=== PATIENT | female | born 1990 | race Caucasian/White ===

== ENCOUNTER 2020-06-27 14:04 | Outpatient (CLI) | payer OTHER, SELFPAY ==
--- NOTE | 2020-06-27 | ECG_ITS ---
Measurements Intervals [place] Rate: 60 P: 9 TX: 149 QRS: 83 QRSD: 91 T: 52 QT: 460 QTc: 460 Interpretive Statements SINUS RHYTHM NORMAL ECG Electronically Signed On 06-27-2020 14:51:10 CDT by Xavi Andrews D.O.
--- NOTE | ~2020-06-27 | XR_ITS ---
EXAMINATION: XR chest 2V DATE: 06/27/2020 15:01 INDICATION: Shortness of breath. TECHNIQUE: Frontal and lateral views of the chest were obtained on 3 radiographs. COMPARISON: Chest single view 03/02/2019 FINDINGS: The chest demonstrates clear lungs without pneumonia, pleural effusion, or pneumothorax. Th e heart size is normal. IMPRESSION: 1. No acute cardiopulmonary disease. Reviewed, dictated and finalized at location A.
[2020-06-27 14:39] LABS: Hematocrit 40.4 % (37.0-47.0); Hemoglobin 13.9 g/dL (12.0-15.0); Mean Corpuscular HGB Conc 34.4 g/dl (32-36); Mean Corpuscular Hemoglobin 30.9 pg (26-34); Mean Corpuscular Volume 89.8 fl (80-100); Mean Platelet Volume 9.7 fl (7.4-10.4); Platelet Count Result 216 k/mm3 (150-375); White Blood Count 6.6 K/mm3 (4.5-10.0)
[2020-06-27 14:51] LABS: Anion Gap 8 mmol/L (8-16); Blood Urea Nitrogen 16 mg/dL (7-17); Calcium 9.4 mg/dL (8.4-10.2); Carbon Dioxide 25 mmol/L (22-30); Chloride 104 mmol/L (98-107); Estimated Glomerular Filt Rate > 60; Glucose 91 mg/dL (65-105); Potassium 4.1 mmol/L (3.4-5.0); Sodium 137 mmol/L (137-145)
== END 2020-06-27 14:05 | disposition home or self-care (01) ==
PROVIDERS: PCP Nurse Practitioner Family; Visit Provider Nurse Practitioner Family
DX: R00.2 Palpitations (principal); R06.02 Shortness of breath
CPT/HCPCS: 36415; 71046; 80048; 84443; 85027; 93005

== ENCOUNTER 2022-04-20 18:04 | Inpatient (IN) | payer OTHER, SELFPAY ==
[2022-04-20] VITALS (7 sets, daily range): BP systolic 107–121; BP diastolic 64–73; PULSE 63–72; TEMP 36.6–36.8; BMI 26.4
--- NOTE | 2022-04-20 18:04 | LDADM ---
This patient, Shaun Wellington, was admitted to Labor/Delivery/Recovery 109 on 04/20/22 at 18:04. Plans for labor, pain management and were discussed with patient. Patient/family oriented to hospital policies and general routines including ID bracelet, bed and alarms, visiting hours, pain management, procedures, bathroom and other care routines, personal items, smoking policy, room service/diet and guest tray routines, infant security routines, and visiting hours. Patient/Family are encouraged to report perceived risks to care and to ask questions if they do not understand what they are told or what they should do. See OBIX for further documentation.
--- OUTSIDE RECORDS SUMMARY | 2022-04-20 18:09 | XMS_ITS | Encounter Summary ---
:1990 Author Care Team Providers Name Role Phone Cecy Cavanaugh NICCI Primary Care Provider [phone] Reason for Visit None recorded. Assessment and Plan 1. COVID-19 ? US, obstetric, follow-up Discussion Note: None recorded.Patient educational handouts: No information available. Plan of Care Reminders Provider Appointments Ob Routine 04/25/2022 1:45PM Sada mendoza CNM ? Ob Routine 04/30/2022 4:30PM Sada mendoza CNM Lab None recorded. ? ? Referral None recorded. ? ? Procedures None recorded. ? ? Surgeries None recorded. ? ? Imaging US, Obstetric, Follow-up 03/11/2022 Jhon nelson Medications Name Start Date ? ? ondansetron HCl 4 mg tablet ? Take 2 tablets twice a day by oral route. ? Medications Administered None recorded. Vitals None recorded. Results Lab Results None recorded. Allergies Code Code System Name Reaction Severity Onset NKDA ? ? ? Problems Name Status Onset Date Source ? Active 10/23/2021 ? Procedures Date Name Performed by ? 12/25/2015 Extraction of [place] Tooth Information n ot available 03/11/2022 US, Obstetric, Follow-up [place] [address] [place] [address] (Work [address]) Vaccine List Vaccine Type Tdap 03/14/2022 Social History Tobacco Smoking Status Never Smoker
--- OUTSIDE RECORDS SUMMARY | 2022-04-20 18:09 | XMS_ITS | Encounter Summary ---
:1990 Author Care Team Providers Name Role Phone Cecy Cavanaugh NICCI Primary Care Provider [phone] Reason for Visit None recorded. Assessment and [...] recorded. ? ? Imaging US, Obstetric, Follow-up 04/09/2022 Jhon nelson Medications Name Start Date ? [...] Name Performed by ? 12/25/2015 Extraction of [place] Tooth Information n ot available 03/11/2022 US, Obstetric, Follow-up [place] [address] [place] [address] (Work Place) 04/09/2022 US, Obstetric, Follow-up [place] [address] [place] [address]
--- OUTSIDE RECORDS SUMMARY | 2022-04-20 18:09 | XMS_ITS | Encounter Summary ---
:1990 Author Care Team Providers Name Role Phone Cecy Monetnoy GRAJEDA Primary Care Provider [phone] Reason for Visit None recorded. Assessment and Plan 1. Routine care Discussion Note: None recorded.Patient educational handouts: No information available. Plan of Care Reminders Provider Appointments Ob Routine 04/25/2022 1:45PM Sada mendoza CNM ? Ob Routine 04/30/2022 4:30PM Sada mendoza CNM Lab None recorded. ? ? Referral None recorded. ? ? Procedures None recorded. ? ? Surgeries None recorded. ? ? Imaging None recorded. ? ? Medications Name Start Date ? ? ondansetron HCl 4 mg tablet ? Take 2 tablets twice a day by oral route. ? Medications Administered None recorded. Vitals Height Weight BMI Blood Pressure 5 ft 7 in 167 lbs 26.2 kg/m2 127/82 mm[Hg] Results Lab Results None recorded. Allergies Code Code System Name Reaction Severity Onset NKDA ? ? ? Problems Name Status Onset Date Source ? Active 10/23/2021 ? Procedures Date Name Performed by ? 12/25/2015 Extraction of [place] Tooth Information n ot available 03/11/2022 US, Obstetric, Follow-up [place] [address] [place] [address] (Work [address]) Vaccine List Vaccine Type Tdap 03/14/2022 Social H
--- OUTSIDE RECORDS SUMMARY | 2022-04-20 18:09 | XMS_ITS ---
:1990 Author Care Team Providers Name Role Phone BELLA DUNHAM NICCI Primary Care Provider [phone] Allergies Code Code System Name Reaction Severity Status Onset NKDA ? Medications Name Status Start Date Stop Date ? ? azithromycin 250 mg tablet Completed ? 04/09 TAKE 2 TABLETS BY MOUTH TODAY, THEN TAKE 1 TABLET DAILY FOR 4 D AYS fluconazole 150 mg tablet Completed ? 2020 TAKE 1 TABLET BY MOUTH metronidazole 500 mg tablet Completed ? 10/2020 TAKE 1 TABLET BY MOUTH EVERY 12 HOURS nitrofurantoin monohydrate/macrocrystals 100 mg capsule Unknown ? Not available TAKE 1 CAPSULE BY MOUTH EVERY 12 HOURS ondansetron HCl 4 mg tablet Active ? Not available Active ? Not available Problems Name Status Onset Date Source ? Active 10/23/2021 ? Procedures Date Name Performed by ? 12/25/2015 Extraction of [place] Tooth Information n ot available 10/23/2021 US, Obstetric, Nuchal Translucency Maryneelima nelson [address] [place] [address] (Work [address]) 12/11/2021 US, Obstetric, 2Nd or 3Rd Trimester [place] [address] [place] [address] (Work [address]) 12/11/2021 US, Obstetric, Transvaginal [place] [address] [place] [address] (Work [address])
--- OUTSIDE RECORDS SUMMARY | 2022-04-20 18:09 | XMS_ITS | Encounter Summary ---
:1990 Author Care Team Providers Name Role Phone Cecy Monetmaralscotty NICCI Primary Care Provider [phone] Reason for Visit OB visit Assessment and Plan 1. Routine care Discussion [...] BMI Blood Pressure 5 ft 7 in 168 lbs 26.3 kg/m2 114/77 mm[Hg] Results Lab Results None recorded. Allergies Code Code System Name Reaction Severity Onset NKDA ? ? ? Problems Name Status Onset Date Source ? Active 10/23/2021 ? Procedures Date Name Performed by ? 12/25/2015 Extraction of [place] Tooth Information n ot available 04/09/2022 US, Obstetric, Follow-up [place] [address] [place] [address] (Work [address]) Vaccine List Vaccine Type Tdap 03/14/2022 Social History
--- OUTSIDE RECORDS SUMMARY | 2022-04-20 18:10 | XMS_ITS | Encounter Summary ---
:1990 Author Care Team Providers Name Role Phone Cecy Riverascotty VIDEO MANAGER Primary Care Provider [phone] Reason for Visit OB visit OB [id number] EDC 04/30/2022 LMP 08/25/2021 Assessment and Plan 1. Routine care Discussion [...] BMI Blood Pressure 5 ft 7 in 163 lbs 25.5 kg/m2 118/73 mm[Hg] Results Lab Results None recorded. Allergies Code Code System Name Reaction Severity Onset NKDA ? ? ? Problems Name Status Onset Date Source ? Active 10/23/2021 ? Procedures Date Name Performed by ? 12/25/2015 Extraction of [place] Tooth Information n ot available Vaccine List Vaccine Type Tdap 03/14/2022 Social History Tobacco Smoking Status Never Smoker What is the highest grade or level of school you have comple janae or [id number] the highest degree you have received?
--- OUTSIDE RECORDS SUMMARY | 2022-04-20 18:10 | XMS_ITS | Encounter Summary ---
:1990 Author Care Team Providers Name Role Phone Cecy Cavanaugh NICCI Primary Care Provider [phone] Reason for Visit None recorded. Assessment and [...] recorded. ? ? Imaging US, Obstetric, Follow-up 02/03/2022 Jhon nelson Medications Name Start Date ? [...] Name Performed by ? 12/25/2015 Extraction of [place] Tooth Information n ot available 01/06/2022 US, Obstetric, Follow-up [place] [address] [place] [address] (Work [address]) 02/03/2022 US, Obstetric, Follow-up [place] [address] [place] [address]
--- OUTSIDE RECORDS SUMMARY | 2022-04-20 18:10 | XMS_ITS | Encounter Summary ---
:1990 Author Care Team Providers Name Role Phone Cecy Cavanaugh OIL DISPATCHER Primary Care Provider [phone] Reason for Visit OB visit ob [id number] 04/30/2022 lmp 08/25/2021 Assessment and Plan 1. Routine care [...] BMI Blood Pressure 5 ft 7 in 160 lbs 25.1 kg/m2 113/60 mm[Hg] Results Lab Results None recorded. Allergies Code Code System Name Reaction Severity Onset NKDA ? ? ? Problems Name Status Onset Date Source ? Active 10/23/2021 ? Procedures Date Name Performed by ? 12/25/2015 Extraction of [place] Tooth Information n ot available 02/03/2022 US, Obstetric, Follow-up [place] [address] [place] [address] (Work [address]) Vaccine List Vaccine Type Tdap
--- OUTSIDE RECORDS SUMMARY | 2022-04-20 18:10 | XMS_ITS | Encounter Summary ---
:1990 Author Care Team Providers Name Role Phone Cecy Cavanaugh NICCI Primary Care Provider [phone] Reason for Visit OB visit Assessment and Plan Assessment Note Patient is ___weeks . Discussed plan. 1. Routine care Discussion Note: None recorded.Patient [...] BMI Blood Pressure 5 ft 7 in 157 lbs 24.6 kg/m2 116/71 mm[Hg] Results Lab Results None recorded. Allergies Code Code System Name Reaction Severity Onset NKDA ? ? ? Problems Name Status Onset Date Source ? Active 10/23/2021 ? Procedures Date Name Performed by ? 12/25/2015 Extraction of [place] Tooth Information n ot available 01/06/2022 US, Obstetric, Follow-up [place] [address] [place] [address] (Work [address]) 02/03/2022 US, Obste
[2022-04-20 19:29] LABS: Basophils Percent Auto 0.1 % (0.2-1.2); Eosinophils Percent Auto 0.2 % (0-4.4); Hematocrit 32.1 % (37.0-47.0); Hemoglobin 10.7 g/dL (12.0-15.0); Immature Granulocyte Absolute 0.06 K/mm3 (0.00-0.031); Immature Granulocyte Percent A 0.4 % (0-0.5); Lymphocytes Absolute Auto 2.23 K/mm3 (0.9-3.2); Lymphocytes Percent Auto 16.6 % (18.3-44.2); Mean Corpuscular HGB Conc 33.3 g/dl (32-36); Mean Corpuscular Hemoglobin 30.1 pg (26-34); Mean Corpuscular Volume 90.4 fl (80-100); Mean Platelet Volume 9.8 fl (7.4-10.4); Monocytes Absolute Auto 0.9 K/mm3 (0.1-0.6); Monocytes Percent Auto 6.9 % (2.6-8.5); Neutrophils Absolute Auto 10.2 K/mm3 (1.3-6.7); Neutrophils Percent Auto 75.8 % (45.5-73.1); Platelet Count Result 232 k/mm3 (150-375); Red Blood Count 3.55 M/mm3 (4.2-5.4); White Blood Count 13.4 K/mm3 (4.5-10.0)
--- NOTE | 2022-04-20 19:42 | WPDANESEPP ---
Anes - Eval Pre Procedure Procedure: labor epidural Date/Time: 04/20/22 19:42 Pre Op Diagnosis: Leaking Patient Data Age: 31 Gender: F Height: 1.7 m Weight: 76.5 kg Last Vital Signs Pulse 72 04/20/22 19:19 BP 121/73 04/20/22 19:19 O2 Del Method Room Air 04/20/22 19:19 Allergies Allergy/AdvReac Type Severity Reaction Status Date / Time No Known Allergies Allergy Verified 04/02/22 15:51 Home Medications Medication Instructions Recorded Confirmed Type aspirin 81 mg tablet 81 mg PO DAILY 04/02/22 04/20/22 History famotidine 20 mg tablet (Pepcid) 20 mg PO DAILY 04/02/22 04/20/22 History ferrous sulfate 325 mg (65 mg 45 mg PO DAILY 04/02/22 04/20/22 History iron) tablet (Iron (ferrous sulfate)) prenat.vits,mary,yye-owav-stbib 1 tablet PO DAILY 04/02/22 04/20/22 History Laboratory Tests 04/20/22 04/20/22 19:02 19:02 WBC 13.4 K/mm3 H K/mm3 (4.5-10.0) RBC 3.55 M/mm3 L M/mm3 (4.2-5.4) Hgb 10.7 g/dL L D g/dL (12.0-15.0) Hct 32.1 % L % (37.0-47.0) MCV 90.4 fl fl (80-100) MCH 30.1 pg pg (26-34) MCHC 33.3 g/dl g/dl (32-36) RDW 13.0 % % (11.5-14.5) Plt Count 232 k/mm3 k/mm3 (150-375) MPV 9.8 fl fl (7.4-10.4) Immature Gran % (Auto) 0.4 % % (0-0.5) Neut % (Auto) 75.8 % H % (45.5-73.1) Lymph % (Auto) 16.6 % L % (18.3-44.2) [place] % (Auto) 6.9 % % (2.6-8.5) Eos % (Auto) 0.2 % % (0-4.4) Baso % (Auto) 0.1 % L % (0.2-1.2) Lymph # (Auto) 2.23 K/mm3 K/mm3 (0.9-3.2) [place] # (Auto) 0.9 K/mm3 H K/mm3 (0.1-0.6) Eos # (Auto) 0.0 K/mm3 K/mm3 (0-0.3) Baso # (Auto) 0.0 K/mm3 K/mm3 (0.0-0.1) Abs Immat Gran (auto) 0.06 K/mm3 H K/mm3 (0.00-0.031) Absolute Neuts (auto) 10.2 K/mm3 H K/mm3 (1.3-6.7) Absolute Nucleated RBC 0.0 K/mm3 K/mm3 (0.0-0.012) Nucleated RBC % 0.0 % % (0.0-0.2) RPR Pending Patient hx anesthesia problems: none Family hx anesthesia problems: none Results Review: All pre-operative results and documents have been reviewed as part of the pre-operative evaluation. [facility] Past Medical History Medical History (Updated 04/20/22 @ 19:45 by Zoraida Burnham CRNA) Anemia Depression Hx of migraines Scoliosis Family History Family History Grandparent Cervical cancer Sibling Mitral valve prolapse Mother Mitral valve prolapse Social History Social History Smoking status: Never smoker Alcohol intake: current Substance use: never Substance use type: does not use Gender identity (if verbalized by the patient): Female Spiritual care concerns: No Exam Day of Procedure 04/20/22 19:42 Patient weight: overweight Heart: regular rate and rhythm Lungs: normal air movement Airway: Mallampati scale class II Neurological: alert and oriented
[2022-04-20] MEDS: OXYTOCIN 30 UNITS/NS 500 ML 30 UNITS/500 ML BAG IV CONT (23:08)
[2022-04-20] MEDS: LACTATED RINGERS 1,000 ML 125 ML IV CONT (23:09)
[2022-04-21] VITALS (60 sets, daily range): BP systolic 84–136; BP diastolic 42–83; PULSE 57–99; RESP 16; TEMP 36.2–36.8; O2SAT 97–100
[2022-04-21] MEDS: ONDANSETRON INJ 4 MG/2 ML VIAL IV PUSH (01:46)
[2022-04-21] MEDS: FAMOTIDINE 20 MG/2 ML VIAL IV PUSH (02:08)
[2022-04-21] MEDS: LACTATED RINGERS 1,000 ML 125 ML IV CONT ×2 (02:14→02:51)
[2022-04-21] MEDS: fentaNYL CITRATE INJ (*CRX) 100 MCG/2 ML VIAL IV PUSH (02:21)
--- NOTE | 2022-04-21 05:27 | WPDOBADMIT ---
Obstetrics - Admit Note Admission Note: Pt admitted with contractions and SROM. record reviewed. No pertinent additions to the history and/or any subsequent changes in the physical findings that are not consistent with the expected course of the were found. Additions to the history and/or subsequent changes in the physical findings follow. None.
--- NOTE | 2022-04-21 05:28 | P.PCNOB_ITS ---
OB - Delivery Note Procedure Procedure: Delivery monitor: External FHT and External Uterine Route of delivery: Specimen: No Quantitative Blood Loss (ml): 69 Anesthesia type: Epidural [place] Baby Date of : 04/21/22 Time of : 05:06 Weeks of gestation at delivery: 38 gender: Male Weight (pounds): 6 Weight (ounces): 1 presentation: vertex position: Right Occiput Anterior Placenta delivery description: Spontaneous Cord Vessel Description: 3 Vessels score one minute: 9 score ten minutes: 9
[2022-04-21] MEDS: LORATADINE 10 MG TABLET PO (05:45)
[2022-04-21] MEDS: OXYTOCIN 30 UNITS/NS 500 ML 30 UNITS/500 ML BAG 125 UNITS IV CONT (05:45)
[2022-04-21] MEDS: WITCH HAZEL 40 PADS 1 PAD TOPICAL (07:25)
[2022-04-21] MEDS: BENZOCAINE 20% AER SPR (*SP) 56 GM CAN 1 SPRAY TOPICAL (07:25)
--- NOTE | 2022-04-21 07:57 | PC.NURSE ---
Patient transferred to post room #291 via wheelchair. Support person present. Oriented to unit, room, information board, rooming in, admission packet and security measures. Patient verbalizes understanding.
[2022-04-21] MEDS: IBUPROFEN 600 MG TABLET PO ×2 (09:41→18:01)
[2022-04-21] MEDS: DOCUSATE SODIUM 100 MG CAPSULE PO (09:41)
[2022-04-21] MEDS: MULTIVIT/MIN/PREN/FOL AC/IRON TABLET 1 TAB PO (09:41)
[2022-04-21] MEDS: LANOLIN (LANSINOH) 7.5 GM CREAM 1 APPLIC TOPICAL (09:42)
--- NOTE | 2022-04-21 13:10 | PC.NURSE ---
[id number] Re-introductions were made due to familiarity, then consulted with patient to assess needs related to . Mother led the conversation with her experience feeding her so far and has laying on her lap. Mother works well with her with encouragement. Encouraged understanding of the benefits of skin to skin (unwrapping and placing vertically on her chest), responsive feeding and how to watch for early feeding signs, frequency of feeding on demand about every 8-12 times in 24 hours (every 2-3 hours), milk production, duration of feeding, signs of adequate intake/output and how to record on the feeding sheet. Reviewed positioning and ear, shoulder, hip alignment, supporting the breast, asymmetrical latch (off-center), and leading with the chin with a big open side gape. Infant attempted to latch to the right breast in cross cradle position with no latch. has early feeding cues when vertically between breast but mainly sleeps when lowered to the breast to feed. Nipple care reviewed with optimal latch and good positioning. Mother hand expressed 1 ml of colostrum and it was syringe fed to infant at 1245. Infant placed back skin to skin after a few more attempts without latching. Reviewed good handwashing when or touching the breast/nipples to prevent infection. Resources used to facilitate learning were used with the visual handout/ tool/mom and baby guide. Mother voiced understanding of responsive feedings, stimulating with skin to skin, hand expressed colostrum, touch, talking to infant to encourage if it has been 2 -3 hours since the start of the last , to call if does not latch or there is discomfort with . Mother is going to eat lunch and RN will check back at 1400. Reported to the primary RN.
--- NOTE | 2022-04-21 14:11 | PC.NURSE ---
1403 - Mother is eating and voiced understanding to call later when infant is skin to skin rooting to breastfeed.
--- NOTE | 2022-04-21 15:26 | PC.NURSE ---
[id number] Mother verbalizes she is able to independently latch with appropriate positioning/alignment but infant breastfed for 5 min, then went to sleep. She denies any nipple discomfort and is responsively . Infant is currently meeting outcomes for weight, output, jaundice and feeding frequencies of 8-12 times in 24 hours. Stimulated infant with position change, demonstrated feeding cues, then optimally assisted and mother with an optimal latch to the left breast using football positioning. Mother acknowledged seeing and hearing swallowing with s suck/swallow ratio of 1:1. Mother is encouraged to call for assistance if her doesn?t latch or there is discomfort with latching. Mother voiced understanding of information shared and mom and baby guide reviewed for additional resource information . Reported to the primary RN.
[2022-04-21 16:29] LABS: Rapid Plasma Reagin Non-Reactive (NonReactive)
[2022-04-21] MEDS: ACETAMINOPHEN 325 MG TABLET 650 MG PO (20:44)
[2022-04-22 01:20] VITALS: BP 111/62; PULSE 62; RESP 16; TEMP 36.7; O2SAT 99
[2022-04-22] MEDS: IBUPROFEN 600 MG TABLET PO ×2 (01:24→09:06)
[2022-04-22 05:25] VITALS: BP 114/72; PULSE 60; RESP 16; TEMP 36.6; O2SAT 98
[2022-04-22 05:35] LABS: Hematocrit 30.1 % (37.0-47.0)
--- NOTE | 2022-04-22 07:03 | P.PNOB_ITS ---
OB - PN: Subj Subjective Date/time seen: 04/22/22 07:03 Patient comments: no complaints and pain well controlled baby status: doing well and nursing well [place] feeding status: exclusively breast feeding OB - PN: Obj Data Labs CBC & Chem 7: 04/22/22 05:29 Labs: Laboratory Results - last 24 hr 04/20/22 04/22/22 19:02 05:29 Hgb 10.0 L Hct 30.1 L RPR Non-reactive OB - PN A/P Plan day: 1 Plan: routine care and discharge home Time Spent With Patient Time: Total time spent is greater than 50% in coordination of care (as documented) at patient's floor/unit and/or counseling patient: Time with patient: less than 15 minutes Exam Narrative: NAD abdomen soft, nontender, fundus firm below the umbilicus Extremities nontender, 1+ edema
[2022-04-22] MEDS: MULTIVIT/MIN/PREN/FOL AC/IRON TABLET 1 TAB PO (07:06)
[2022-04-22] MEDS: ACETAMINOPHEN 325 MG TABLET 650 MG PO (07:06)
[2022-04-22] MEDS: DOCUSATE SODIUM 100 MG CAPSULE PO (07:06)
--- NOTE | 2022-04-22 07:06 | PM.OBDSVD ---
DS: Admitting Diagnosis Discharge Date 04/22/22 Admitting Diagnosis term IUP, SROM DS: Discharge Diagnosis Discharge Diagnosis (1) , delivered: Code(s): O80 - Encounter for full-term uncomplicated delivery Status: Acute OB - DS: Summary Hospital Course Hospital Course: Che was admitted for SROM at term and had an uncomplicated vaginal delivery and course. She was DCed home on PPD 1 in stable condition. OB Procedures : Ultrasound OB Procedures Intrapartum: Spontaneous Vag Delivery OB Procedures: : None Peripartum Data Delivery Method: Natural Vaginal complications: none Status at Discharge Functional status at discharge: independent ambulation Time Spent with Patient Time attestation: Total time spent providing and/or coordinating discharge services: Exam Narrative: NAD abdomen soft, appropriately tender Ext non tender, 1+ edema DS: Data Data Completed and Pending Labs on day of discharge: Labs from last 24 hours 04/22/22 04/20/22 05:29 19:02 Hgb 10.0 L Hct 30.1 L RPR Non-reactive Discharge Plan Discharge Attending physician on discharge: Shauna Reddy Discharging Clinician: Shauna Reddy Anticipated Discharge Date/Time: 04/22/22 07:04 Patient Disposition: Home, Self-Care Activity: pelvic rest Diet: regular Patient Instructions: Antibiotic Form Stand Alone Forms: General Discharge Information Follow-up/Referrals: Liza Mckeon MD [Physician] - 4 Weeks Discharge Medications: Continued famotidine [Pepcid] 20 mg Tablet 20 mg PO DAILY ferrous sulfate [Iron (ferrous sulfate)] 325 mg (65 mg iron) Tablet 45 mg PO DAILY #2 Tablet 1 tablet PO DAILY Discontinued Low-Dose Aspirin 81 mg Tablet 81 mg PO DAILY Date of admission: 04/20/22 18:04 Primary Care Provider: Cecy Cavanaugh Admitting Provider: Liza Mckeon Attending physician on admission: Liza Mckeon Condition: Stable
--- NOTE | 2022-04-22 07:42 | PC.NURSE ---
Patient to view the discharge video Mother & Baby Care, The First Two Weeks online. Patient was given the opportunity and encouraged to ask questions. Patient verbalized understanding of information shared and has been given the mother/baby guide for home reference.
[2022-04-22 08:05] VITALS: BP 112/68; PULSE 66; RESP 18; TEMP 37.2; O2SAT 95
--- NOTE | 2022-04-22 11:25 | PC.NURSE ---
[id number] Mother led the conversation with her experience and plan to feed her so far and her ability to independently latch optimally without discomfort. Mother is feeding appropriately for growth of and understands stimulating infant to eat if needed. has had appropriate feedings in the last 24 hours meets the outcomes for weight, output and jaundice at this time. Mother states she is confident to continue effectively her at home or when to call for assistance and denies any additional assistance or education at this time. Reinforced understanding of milk production, transition of milk, signs of adequate intake, prevention/relief of engorgement, responsive after visualizing feeding cues, the different methods of stimulating to breastfeed 2-3 hours after the start of the last feeding, community resources, medication information reviewed per [employer] and when to call a provider using the resource of the mom and baby guide/[facility] website. Mother voiced understanding of the education shared. Reported to the primary RN.
[2022-04-23 09:50] VITALS: BP 114/58; PULSE 63; RESP 20; TEMP 36.6; O2SAT 99
== END 2022-04-22 10:16 | disposition home or self-care (01) | DRG 807 ==
LOC: ANHLDR 18:28 → ANHOB2 04-22 07:06 → ANHLDR 04-23 09:30
PROVIDERS: Advanced Practice Midwife; Admitting Provider Obstetrics & Gynecology; PCP Nurse Practitioner Family; Visit Provider Obstetrics & Gynecology
DX: O69.89X0 Labor and delivery complicated by other cord complications, not applicable or unspecified (principal); Z37.0 Single live birth; O76 Abnormality in fetal heart rate and rhythm complicating labor and delivery; Z3A.38 38 weeks gestation of pregnancy
CPT/HCPCS: 36415; 85014; 85018; 85025; 86592; 86850; 86900; 86901; A9270; J2405; J2590; J2795; J3010; J7120

== ENCOUNTER → 2023-01-29 10:44 | Outpatient (CLI) | payer OTHER, SELFPAY ==
--- NOTE | ~2023-01-29 | MMUS_ITS ---
EXAMINATION: US breast RT complete, MM diagnostic yenni BI w andrea HISTORY: Right breast pain. One month . TECHNIQUE: Additional 3-D tomosynthesis images of the breasts were performed and synthetic 2-D images were generated. CAD analysis was submitted and interpreted. High resolution complete right breast ul trasound was performed. COMPARISON: None BREAST PARENCHYMAL COMPOSITION: The breasts are extremely dense, which lowers the sensitivity of mamm ography FINDINGS: MAMMOGRAPHIC FINDINGS: There are no suspicious masses, calcifications or architectural distortion in either breast to sugges t malignancy. ULTRASOUND: Complete US of all 4 quadrants of the right breast and retroareolar region was reviewed. Normal heter ogeneous echotexture without focal mass. IMPRESSION: 1. No evidence for malignancy in either breast. 2. Recommend follow-up screening mammogram at age 40. BI-RADS Category 1: Negative Reviewed, dictated and finalized at location A. IMPRESSION: 1. No evidence for malignancy in either breast. 2. Recommend follow-up screening mammogram at age 40. BI-RADS Category 1: Negative
== END ==
PROVIDERS: PCP Advanced Practice Midwife; Visit Provider Advanced Practice Midwife
DX: N64.4 Mastodynia (principal)
CPT/HCPCS: 76641; 77062; 77066; G0279

== ENCOUNTER 2023-06-04 10:34 | Outpatient (CLI) | payer OTHER, SELFPAY ==
--- NOTE | 2023-06-08 16:22 | P.PCNHOL_ITS ---
Holter/Event Monitor Holter/Event Monitor Date of procedure: 06/04/23 Holter/Event Procedure: 48 Hr Holter Monitor Indications: Chest pain Conclusion: 1. 48 hour holter monitor on 06/04/23. 2. Underlying rhythm is sinus rhythm. HR range 44-174 bpm; average 69 bpm. HR at 44 bpm was at 02:38. HR at 174 bpm was at 18:22. 3. There are 14 premature supraventricular complexes and 1 supraventricular couplet. No supraventricular tachycardia. 4. There are 3 premature ventricular complexes. No ventricular tachycardia. 5. No sinoatrial or atrioventricular blocks. No significant pauses greater than 2 seconds. 6. Patient reports symptoms of chest pounding, chest tightness, lightheadedness, shortness of breath, palpitations which demonstrate sinus rhythm, HR range 57- 108 bpm and 1 PAC.
== END 2023-06-04 10:35 | disposition home or self-care (01) ==
PROVIDERS: PCP Advanced Practice Midwife; Visit Provider Advanced Practice Midwife
DX: R07.9 Chest pain, unspecified (principal); R94.39 Abnormal result of other cardiovascular function study
CPT/HCPCS: 93225; 93226